=== PATIENT | male | born 1990 | race Caucasian/White ===

== ENCOUNTER 2017-04-05 08:26 | Emergency (ER) | payer MEDICAID, OTHER ==
[2017-04-05 08:48] VITALS: PULSE 74; RESP 18; TEMP 98.4; O2SAT 94
[2017-04-05 08:52] VITALS: BP 130/109
--- NOTE | 2017-04-05 08:52 | EDPHY ---
H & P Time Seen by Provider: 04/05/17 08:41 HPI/ROS: CHIEF COMPLAINT: Pain in the right foot HISTORY OF PRESENT ILLNESS: Family history of gout. Nontraumatic pain in the right foot at the MTP joint. Worse with weight-bearing or movement. Not associated with skin changes or fever or chills or leg discomfort. Normal toenail. REVIEW OF SYSTEMS: No other pain. PAST MEDICAL HISTORY: Otherwise negative Social history: No drugs, does have family history of gout General Appearance: Alert and conversant, cooperative. Patient has pain and tenderness to palpation at the right toe MTP joint. Worse with movement. No overlying skin changes and not hot to the touch. Slightly swollen there. Distal capillary refill normal. Normal motor and sensory in the toes. Remainder of the foot and ankle is normal. Emergency Department course/MDM: We discussed options. Aspiration of the joint was discussed for definitive diagnosis and the patient declined. X-ray was discussed, patient declines x-ray. Empiric treatment with indomethacin discussed and consented. No history of ulcer or GI bleed. Orthopedic appliance for the foot. As the patient has declined imaging and aspiration I warned him to return or seek follow-up primary care as referred if he is not better in the next 48-72 hours. I think that fracture or septic joint or deep space foot infection is unlikely at this time. Smoking Status: Never smoked Constitutional: Initial Vital Signs Temperature (C) 36.9 C 04/05/17 08:44 Heart Rate 74 04/05/17 08:44 Respiratory Rate 18 04/05/17 08:44 Blood Pressure 130/109 H 04/05/17 08:44 O2 Sat (%) 94 04/05/17 08:44 O2 Delivery Mode Room Air Allergies/Adverse Reactions: No Known Allergies Allergy (Unverified 06/16/10 13:25) Home Medications: Medication Instructions Recorded NO HOME MEDS 06/16/10 Indomethacin [Indocin 25 mg (*)] 50 mg PO Q8 #20 cap 04/05/17 MDM/Departure - Depart Clinical Impression: Gout attack Qualifiers: Gout site: foot Gout etiology: unspecified cause Laterality: right Qualified Code(s): M10.9 - Gout, unspecified Condition: Good Instructions: Gout (ED) Additional Instructions: Orthopedic shoe as needed. Take indomethacin as prescribed. Follow-up early next week if you're not improving, with referral primary care doctor or orthopedist. Please return immediately if you develop increasing pain redness or swelling in the foot or any other skin changes. If you get abdominal pain or black or bloody stools or vomiting stop the indomethacin immediately and return for evaluation. Prescriptions: Indomethacin [Indocin 25 mg (*)] 50 mg PO Q8 #20 cap Referrals: Dev Vázquez DO [Doctor of Osteopathy] - As per Instructions Filiberto San MD [Medical Doctor] - As per Instructions
== END 2017-04-05 09:05 | disposition home or self-care (01) ==
LOC: CED 08:26
DX: M10.9 Gout, unspecified (principal)
CPT/HCPCS: L3260

== ENCOUNTER 2017-04-26 12:19 | Emergency (ER) | payer MEDICAID ==
[2017-04-26 12:28] VITALS: BP 160/100; PULSE 70; RESP 14; TEMP 97.9; O2SAT 96
--- NOTE | 2017-04-26 12:38 | EDPHY ---
HPI/HX/ROS/PE/MDM Narrative: CHIEF COMPLAINT: Right foot pain HPI: The patient is a 26-year-old male who was seen in the urgent care approximately 1 month ago and diagnosed with likely gout. He has not followed up with a primary doctor or lgsw as was instructed to. He returns complaining of severe pain to his right 1st metatarsophalangeal joint. States his diet consists heavily of beer and meat. His father has gout. Suspects he is likely having gout again. REVIEW OF SYSTEMS: Aside from elements discussed in the HPI, a comprehensive 10-point review of systems was reviewed and is negative. PMH: Family history of gout. SOCIAL HISTORY: Denies drug abuse. Admits to a lot of beer intake. PHYSICAL EXAM: General:Patient is alert, in no acute distress. Extremities: Right foot: Normal appearance. Full range of motion. Tenderness to palpation and pain with range of motion is present at the 1st metatarsophalangeal joint. No erythema, warmth or cellulitis. Neuro: Oriented x3. Normal motor function. Normal sensory function. ED Course: X-ray of the right foot is negative for fracture or dislocation. MDM: This patient presents with classic symptoms of gout. Given his habitus, diet and family history of gout, this is all the more likely. Will start the patient on allopurinol given that this is 2nd attack and start him on naproxen as well. I strongly encouraged him to follow up with the lgsw and referred him to one. I think cellulitis, fracture, dislocation to be very unlikely. - Data Points Imaging: I viewed and interpreted images myself General Time Seen by Provider: 04/26/17 12:24 Initial Vital Signs: Initial Vital Signs Temperature (C) 36.6 C 04/26/17 12:27 Heart Rate 70 04/26/17 12:27 Respiratory Rate 14 04/26/17 12:27 Blood Pressure 160/100 H 04/26/17 12:27 O2 Sat (%) 96 04/26/17 12:27 O2 Delivery Mode Room Air Allergies/Adverse Reactions: No Known Allergies Allergy (Unverified 06/16/10 13:25) Home Medications: Medication Instructions Recorded NO HOME MEDS 06/16/10 Allopurinol [Allopurinol 300 MG 300 mg PO DAILY #20 tab 04/26/17 (RX)] Naproxen 500 mg PO BID #30 tablet 04/26/17 Departure - Departure Disposition: Home, Routine, Self-Care Clinical Impression: Gout attack Condition: Good Instructions: Low Purine Diet (ED), Gout (ED) Additional Instructions: Follow-up with a lgsw within one week. Return for fever or severe pain. Referrals: NONE *PRIMARY CARE P,. [Primary Care Provider] - As per Instructions Kristie Gonzalez [Doctor of Podiatric Medicine] - As per Instructions Prescriptions: Allopurinol [Allopurinol 300 MG (RX)] 300 mg PO DAILY #20 tab Naproxen 500 mg PO BID #30 tablet
== END 2017-04-26 12:58 | disposition home or self-care (01) ==
LOC: CED 12:19
DX: M10.9 Gout, unspecified (principal)
CPT/HCPCS: 73630-PO

== ENCOUNTER 2018-12-29 07:08 | Day surgery (SDC) | payer MEDICAID ==
--- NOTE | 2018-12-28 22:25 | PDGENHP ---
History & Physical Chief Complaint: right knee acl tear History of Present Illness: 28 yo male presenting today for right knee acl surgery by dr. hernandez, with patella tendon allograft Pertinent Past, Social, Family History: PMH: gout. PSH: FH: denies pertinent. SOH: mod etoh, 2ppw smoker, denies elicit drug use Relevant Physical Exam: He has a trace effusion. He has a range of motion, which is symmetrical with the opposite side. Lupe's testing elicits popping deep within his knee both with medial and lateral compartment testing. Shira' s is positive. He has tenderness to palpation along both medial and lateral joint lines. Cardiorespiratory Assessment: rrr. ctab A/P Assessment: 28 yo male s/p right knee injury w/ right knee acl rupture, presenting today for surgery by dr. hernandez for right knee acl reconstruction with patella allograft -PIPPA de [place]za/scd's left leg -LLE: wbat -lactated ringers iv 50ml/hr -clean/prep surgical site
--- NOTE | 2018-12-29 06:45 | PDANEPAE ---
ANE History of Present Illness acl tear ANE Past Medical History - Cardiovascular History Hx Hypertension: No Hx Arrhythmias: No Hx Chest Pain: No Hx Coronary Artery / Peripheral Vascular Disease: No Hx CHF / Valvular Disease: No Hx Palpitations: No Cardiovascular History Comment: BP runs high - Pulmonary History Hx COPD: No Hx Asthma/Reactive Airway Disease: No Hx Recent Upper Respiratory Infection: No Hx Oxygen in Use at Home: No Hx Sleep Apnea: No Sleep Apnea Screening Result - Last Documented: Negative - Neurologic History Hx Cerebrovascular Accident: No Hx Seizures: No Hx Dementia: No - Endocrine History Hx Diabetes: No Hypothyroid: No Hyperthyroid: No Obesity: yes, mild - Renal History Hx Renal Disorders: No - Liver History Hx Hepatic Disorders: No - Neurological & Psychiatric Hx Hx Neurological and Psychiatric Disorders: Yes Neurological / Psychiatric History Comment: anxiety - Cancer History Hx Cancer: No - Congenital Disorder History Hx Congenital Disorders: No - GI History GERD: no Hx Gastrointestinal Disorders: No - Other Health History Other Health History: none - Chronic Pain History Chronic Pain: No - Surgical History Prior Surgeries: none ANE Review of Systems Review of systems is: negative Review of Systems: - Exercise capacity METS (RN): 5 METS ANE Patient History - Allergies Allergies/Adverse Reactions: No Known Allergies Allergy (Verified 12/15/18 17:48) - Home Medications Home medications: home medication list seen and reviewed Home Medications: NO HOME MEDS 06/16/10 [Last Taken Unknown] - NPO status NPO Status: no food or drink >8 hours - Anes Hx Anes Hx: no prior problems - Smoking Hx Smoking Status: Current every day smoker - Alcohol Use Alcohol Use: Occasionally - Family Anes Hx Family Anes Hx: none Family Hx Anesthesia Complications: none ANE Labs/Vital Signs - Vital Signs Height: 203.2 cm Weight: 131.542 kg ANE Physical Exam - Airway Neck exam: FROM Mallampati Score: Class 2 Mouth exam: normal dental/mouth exam - Pulmonary Pulmonary: no respiratory distress, clear to auscultation - Cardiovascular Cardiovascular: regular rate and rhythym, no murmur, rub, or gallop - ASA Status ASA Status: II ANE Anesthesia Plan Anesthesia Plan: GA w LMA
[2018-12-29] MEDS ORDERED: BUPIVACAINE/EPI 0.5% 30 ML SDV ONE (07:14)
[2018-12-29] MEDS ORDERED: fentaNYL 250 MCG/5 ML INJ ONE (07:19)
[2018-12-29] MEDS ORDERED: LIDOCAINE 2% 5 ML SDV ONE (07:19)
[2018-12-29] MEDS ORDERED: PROPOFOL/EMULSION 500 MG/50 ML BOTTLE IV ONE (07:19)
[2018-12-29] MEDS ORDERED: LR 1,000 ML IV SCH (07:22)
[2018-12-29] MEDS ORDERED: LR 1,000 ML IV ONE (07:22)
[2018-12-29] MEDS ORDERED: ceFAZolin 2 GM/DEXTROSE 100 ML IV ONE (07:22)
[2018-12-29] MEDS ORDERED: ceFAZolin 3 GM in D5W 100 ML IV ONE (07:30)
[2018-12-29] MEDS ORDERED: morphINE PF 5 MG/10 ML INJ ONE (07:39)
--- NOTE | 2018-12-29 08:45 | PDHPUP ---
History & Physical Update H&P update statement: This history and physical update is based on an assessment of the patient which was completed after admission or registration (within 24 hours), but prior to the surgery/procedure. H&P update: H&P reviewed & patient examined, no change in patient's condition since H&P completed
[2018-12-29] MEDS ORDERED: LR 500 ML IV PRN (10:58)
[2018-12-29] MEDS ORDERED: ONDANSETRON 4 MG/2 ML VIAL IVP PRN (10:58)
[2018-12-29] MEDS ORDERED: NALOXONE HCL 0.4 MG/ML INJ IVP PRN (10:58)
[2018-12-29] MEDS ORDERED: HYDROmorphONE/DILAUDID 2 MG/ML INJ IVP PRN (10:58)
[2018-12-29] MEDS ORDERED: fentaNYL 100 MCG/2 ML INJ IVP PRN (10:58)
--- NOTE | 2018-12-29 10:58 | POSTANESTH ---
Post Anesthetic Evaluation Cardiovascular Status: Normal, Stable Respiratory Status: Normal, Stable Level of Consciousness/Mental Status: Can Participate in Eval Pain Control: Adequate, Prn Tx Ordered Nausea/Vomiting Control: Adequate, Prn Tx Ordered Complications Possibly Related to Anesthesia: None Noted
[2018-12-29] MEDS ORDERED: DEXAMETHASONE 4 MG/ML VIAL ONE (11:02)
[2018-12-29] MEDS ORDERED: ONDANSETRON 4 MG/2 ML VIAL ONE (11:02)
[2018-12-29] MEDS ORDERED: KETOROLAC 30 MG/1 ML SDV ONE (11:03)
--- NOTE | 2018-12-29 11:17 | POSTOPPROG ---
Post Op Note Date of Operation: 12/29/18 Surgeon: Quan Hunter Survival Specialist: Marcel Leong PA-C Anesthesia: GET(General Endotracheal) Pre-op Diagnosis: right knee acl rupture Post-op Diagnosis: right knee acl rupture Procedure: right knee ACL reconstruction w/ patella allograft, partial med/lat menisec Inf/Abcess present in the surg proc area at time of surgery?: No EBL: 50-100 Complications: none total tourniquet 70 Drains: Other (none)
[2018-12-29] MEDS ORDERED: ACETAMINOPHEN 325 MG TAB PO PRN (11:19)
[2018-12-29] MEDS ORDERED: ONDANSETRON DISINTEGRATING 4 MG TAB PO PRN (11:19)
[2018-12-29] MEDS ORDERED: KETOROLAC 15 MG/1 ML SDV IVP ONE (11:19)
[2018-12-29] MEDS ORDERED: oxyCODONE IR 5 MG TAB PO PRN (11:19)
[2018-12-29 12:19] VITALS: BP 147/84
--- NOTE | 2018-12-30 18:23 | GOP ---
[f rep st] OPERATIVE REPORT DATE OF OPERATION: 12/29/2018 SURGEON: Quan Hunter MD FRAUD ANALYST: Justo Leong PA-C. ANESTHESIA: General. PREOPERATIVE DIAGNOSIS: Anterior cruciate ligament deficiency, right knee, with associated medial an d lateral meniscal tears. POSTOPERATIVE DIAGNOSIS: Anterior cruciate ligament deficiency, right knee, with associated medial a nd lateral meniscal tears, with a focal area of patellofemoral chondromalacia. PROCEDURE PERFORMED: 1. Arthroscopic partial medial and lateral meniscectomy. 2. Patellofemoral chondroplasty. 3. Anterior cruciate ligament reconstruction using BTB patellar tendon allograft. FINDINGS: ESTIMATED BLOOD LOSS: 10 cc. INDICATIONS: This patient is a young male who sustained the above-noted injury at a skiing accident. He has been evaluated with a MRI scan which confirms the preoperative diagnoses. He is admitted fo r operated treatment. DESCRIPTION OF PROCEDURE: After the induction of general anesthetic, the patient was placed on the o perating room table in a supine position. His right kneecap and thigh were prepped and draped in the usual fashion. Standard arthroscopic portals were utilized. The scope was introduced in the medial portal and the knee examined. The suprapatellar pouch was remarkable for diffuse reactive synovitis . The patellofemoral compartment showed a focal area of grade 3 retropatellar chondral change involv ing the mid portion of the medial patellar facet. This was minimally debrided with a rotary debrider . The area involved measured less than a centimeter in diameter. There were no areas of full thickn ess loss. The scope was passed into the intracondylar notch where the ACL was obviously completely disrupted adan ving been detached from its femoral insertion point. Adjacent to the torn ACL, there was an unstable flap tear of the medial meniscus which was flipped up into the anterior compartment adjacent to the intercondylar notch. This appeared to have been a bucket-handle tear of the medial meniscus which adan d degenerated to a double flap configuration with the larger component being anteriorly based. It wa s an irreparable tear. The unstable components were debrided with an in-cutting basket as well as a rotary debrider. Approximately 30% of the meniscal tissue was removed to stabilize the tear. The re section margins were tapered back into the rim of the remaining meniscus. There was an area of chond ral damage on the medial femoral condyle adjacent to it which was also minimally debrided. It involv ed the weightbearing portion of the medial femur and measured approximately 1.5 cm in diameter. Ther e were no areas of full-thickness loss. The lateral compartment was inspected. There was a crush injury to the anterior horn of the lateral meniscus with frayed unstable flap components anteriorly. This was debrided with the rotatory debride r back to a stable configuration. Less than 10% of the meniscal tissue was resected to stabilize the anterior horn lateral meniscal tear. There was some associated grade 3 chondral change on the anterior aspect of the lateral tibial platea u which was minimally debrided. At this point, attention was turned to fashioning the allograft anticipating the ACL reconstruction. The assistant finance director fashioned the graft. The final configuration of the graft was a 12 mm wide graft with a 10 x 25 mm bone block distally and a 9 x 25 mm bone block proximally. The graft was of excellent quality. While the assistant finance director was working on the graft, the ACL stump was resected and a notchplasty was performed in the usual fashion. The leg was exsanguinated with an Esmarch bandage before the tourniquet was inflated to 275 mmHg. A longitudinal incision was made overlying the anteromedial tibial cortex. Dissection was carried down through the subcutaneous tissues to the metaphyseal cortex. The anterior tibial guide was placed an d a guidepin passed from the anteromedial tibial cortex to the intracondylar region of the tibia at t he anatomic foot print of the ACL. This was overdrilled to a diameter of 10 mm. The debris was evac uated from the knee before a second guidepin was passed from the medial portal to an area in the inte rcondylar notch which appeared to be an isometric point. The pin was passed through the femur exitin g the lateral cortex and thigh. This was overdrilled to a diameter of 9 mm and depth of 25 mm creati ng a blind tunnel in the distal femur for placement of the femoral bone block. Again, the debris was evacuated from the knee before the guidepin was used to pull a passing suture into place. The passi ng suture was then used to pull the graft into place. The graft was seated with the cancellus surfac e of the femoral bone block oriented anteriorly. It was fixed with a 7 x 20 mm fully-threaded cannul ated titanium interference screw with excellent purchase. The graft was pulled taut before being fix ed on the tibial side with a second 7 mm fully-threaded titanium interference screw. A 25 mm screw w as used on the tibial side. Again, excellent purchase was achieved. At this point, a Shira maneuver was performed which was notably negative. There was no evidence of graft impingement. At this point, the arthroscopic equipment was removed from the knee. The incisions were closed in a layered fashion. The tibial insertion site was closed with 0 Vicryl reapproximating the periosteal l nguyen, 3-0 Vicryl reapproximating the subcutaneous layer, and 5-0 Vicryl in a running subcuticular fas hion closing the skin. 5-0 Vicryl was also used to close the portals. Skin edges were infiltrated w ith 0.25% Marcaine solution before Steri-Strips and sterile compressive dressing were applied. The azeb hubbard was awakened from his anesthetic without complication. COMPLICATIONS: None. /[id number]/MODL
== END 2018-12-29 12:30 | disposition home or self-care (01) ==
LOC: FSGY 07:08
PROVIDERS: ATTEND Orthopaedic Surgery
DX: S83.511A Sprain of anterior cruciate ligament of right knee, initial encounter (principal); S83.211A Bucket-handle tear of medial meniscus, current injury, right knee, initial encounter; S83.281A Other tear of lateral meniscus, current injury, right knee, initial encounter; Y93.23 Activity, snow (alpine) (downhill) skiing, snowboarding, sledding, tobogganing and snow tubing; M22.41 Chondromalacia patellae, right knee; M65.861 Other synovitis and tenosynovitis, right lower leg; M10.9 Gout, unspecified; F17.210 Nicotine dependence, cigarettes, uncomplicated
CPT/HCPCS: C1713; C1762; J0690; J1100; J1885; J2274; J2405; J2704; J3010